=== PATIENT | male | born 1990 | race Two or more races ===

== ENCOUNTER 2019-12-08 05:05 | Emergency (ER) | payer OTHER ==
[~2019-12-08] VITALS: Ht 180.3 cm; Wt 86.2 kg
[2019-12-08 05:34] VITALS: BP 115/80
== END 2019-12-08 06:52 | disposition home or self-care (01) ==
LOC: ER 05:05
DX: S46.812A Strain of other muscles, fascia and tendons at shoulder and upper arm level, left arm, initial encounter (principal); S73.102A Unspecified sprain of left hip, initial encounter; M51.36 Other intervertebral disc degeneration, lumbar region; M25.78 Osteophyte, vertebrae; M62.838 Other muscle spasm; V89.2XXA Person injured in unspecified motor-vehicle accident, traffic, initial encounter; Y93.I9 Activity, other involving external motion; Y92.410 Unspecified street and highway as the place of occurrence of the external cause; Y99.8 Other external cause status
CPT/HCPCS: 70450; 72125; 72131; 72192; 73060